=== PATIENT | female | born 1995 | race Caucasian/White ===

== ENCOUNTER 2016-10-25 22:51 | Inpatient (IN) | payer OTHER ==
--- NOTE | ~2016-10-25 | PN ---
Unit #: [id number] #: [id number] Patient: LAVERNE WHEELER [id number] [facility] [address] [place] [address] [id number] MR#: [id number] NAME: LAVERNE WHEELER ROOM: [facility] Age: 21 Sex: F Admission Date: 10/25/2016 : 1995 Attending Physician: Toni Haynes M.D. Admitting Physician: Toni Haynes M.D. Primary Care Physician: Primary Care Physician Lisa ROWLAND NOTES DATE OF SERVICE 10/30/2016 DISCUSSION Laverne Wheeler is a 41-year-old female seen on 10/30/2016. The patient interviewed, chart reviewed. Obtained information from nursing staff. The patient was compliant, cooperative. Mood was labile. The patient was somewhat attention-seeking. Needing redirection, but able to maintain safe behavior. The patient adjusting fairly well to unit rules of 2-Madhavi. The patient's vital signs stable, 98.0, 100, 123/77. Complete Review of Systems: Unremarkable. MENTAL STATUS EXAMINATION General Appearance: The patient dressed casually. Attention span, concentration: Fair. Oriented in place and person. Mood and affect labile. Speech: Rapid. Thought process: Circumstantial. Association: The patient denied any thoughts of harming self or others but somewhat guarded. Recent and remote memory: Poor. Insight and judgment: Poor. DIAGNOSIS Bipolar mood disorder not otherwise specified. ASSESSMENT/PLAN Advised to continue with current medication and therapeutic protocol. We will monitor response to medication and make further adjustment of medication with a plan to stabilize the patient and send the patient back to the residential facility. Dictated by... Jesus Goodman/edward TD: 11/01/2016 07:05 JOB #: [id number] Unit #: [id number] #: [id number] Patient: LAVERNE WHEELER PROGRESS NOTES X Toni Haynes MD PROGRESS NOTE
--- NOTE | ~2016-10-25 | PN ---
Unit #: [id number] #: [id number] Patient: LAVERNE WHEELER [id number] [facility] [address] [place] [address] [id number] MR#: [id number] NAME: LAVERNE WHEELER ROOM: [facility] Age: 21 Sex: F Admission Date: 10/25/2016 : 1995 Attending Physician: Toni Haynes M.D. Admitting Physician: Toni Haynes M.D. Primary Care Physician: Primary Care Physician Lisa ROWLAND NOTES DATE OF SERVICE: 10/28/2016 DISCUSSION Ms. Laverne Wheeler is a 21-year-old female, seen on 10/28/2016. The patient interviewed, chart reviewed, obtained information from nursing staff. The patient was compliant, cooperative. Mood is sad and dysphoric, flat affect, guarded. The patient was able to maintain safe behavior. No aggressive behavior. REVIEW OF SYSTEMS Complete review of systems unremarkable. MENTAL STATUS EXAMINATION General appearance, the patient dressed casually. Attention span and concentration, fair. Oriented in place and person. Mood and affect, sad and dysphoric. Speech, monotone. Thought process, concrete. The patient denied any thoughts of harming self or others or any psychotic symptom. Recent and remote memory, poor. Insight and judgment, poor. DIAGNOSIS Mood disorder, not otherwise specified. ASSESSMENT AND PLAN Advised to continue with current medication and therapeutic protocol. We will monitor response to medication and make further adjustment of medication. Dictated by... Jesus Goodman/arik TD: 10/29/2016 16:11 JOB #: [id number] Unit #: [id number] #: [id number] Patient: LAVERNE WHEELER PEALUIGI PROGRESS NOTES X Toni Haynes MD PROGRESS NOTE
--- NOTE | ~2016-10-25 | PN ---
Unit #: [id number] #: [id number] Patient: LAVERNE WHEELER [id number] [facility] [address] [place] [address] [id number] MR#: [id number] NAME: LAVERNE WHEELER ROOM: [facility] Age: 21 Sex: F Admission Date: 10/25/2016 : 1995 Attending Physician: Toni Haynes M.D. Admitting Physician: Toni Haynes M.D. Primary Care Physician: Primary Care Physician Lisa BROOKS PROGRESS NOTES DATE 10/27/2016 DISCUSSION Ms. Laverne Wheeler is a 21-year-old female seen on 10/27/2016. The patient interviewed, chart reviewed. Obtained information from nursing staff. The patient was pleasant and cooperative able to maintain safe behavior. No aggressive behavior. Mood was labile. Complete review of systems unremarkable. MENTAL STATUS EXAMINATION General appearance, the patient dressed casually. Attention span and concentration fair. Oriented to place and person. Mood and affect sad, dysphoric. Speech monotone. Thought process concrete. The patient denied any thoughts of harming self or others or any psychotic symptoms. Recent and remote memory poor. Insight and judgement poor. DIAGNOSES Bipolar mood disorder NOS. ASSESSMENT/PLAN Advise to continue with current medication and therapeutic protocol. We will monitor response to medication and make further adjustment of medication. Dictated by... Jesus Goodman/joselo TD: 10/30/2016 22:23 JOB #: [id number] Unit #: [id number] #: [id number] Patient: LAVERNE WHEELER PROGRESS NOTES X Toni Haynes MD PROGRESS NOTE
--- NOTE | ~2016-10-25 | PN ---
Unit #: [id number] #: [id number] Patient: LAVERNE WHEELER [id number] [facility] [address] [place] [address] [id number] MR#: [id number] NAME: LAVERNE WHEELER ROOM: [facility] [place] Age: 21 Sex: F Admission Date: 10/25/2016 : 1995 Attending Physician: Toni Haynes M.D. Admitting Physician: Toni Haynes M.D. Primary Care Physician: Primary Care Physician Lisa ROWLAND NOTES DATE OF SERVICE 10/29/2016 DISCUSSION Laverne Wheeler is a 21-year-old female seen on 10/29/2016. The patient interviewed, chart reviewed. Obtained information from nursing staff. The patient was compliant and cooperative. The patient still having problem with mood lability but no self-harming behavior or aggression. Compliant with medication. No side effects from medication. The patient needed multiple redirections. Complete Review of Systems: Unremarkable. MENTAL STATUS EXAMINATION General Appearance: The patient dressed casually. Moderately obese. Attention span, concentration: Fair. Oriented in place and person. Mood and affect labile. Speech: Loud. Thought process: Circumstantial. Association: The patient denied any thoughts of harming self or others but somewhat guarded. Recent and remote memory: Poor. Insight and judgment: Poor. DIAGNOSES 1. Bipolar mood disorder not otherwise specified. 2. Mild intellectual deficit. ASSESSMENT/PLAN Advised to continue with current medication and therapeutic protocol. We will monitor response to medication and make further adjustment of medication if needed. Dictated by... Jesus Goodman/edward TD: 10/31/2016 11:31 JOB #: [id number] Unit #: [id number] #: [id number] Patient: LAVERNE WHEELER PROGRESS NOTES X Toni Haynes MD PROGRESS NOTE
--- NOTE | ~2016-10-25 | DS ---
Unit #: [id number] #: [id number] Patient: JOSUE CALHOUN [id number] [place] [address] [id number] MR#: [id number] NAME: JOSUE CALHOUN ROOM: [facility] Age: 21 Sex: F Admission Date: 10/25/2016 : 1995 Discharge Date: 11/01/2016 Attending Physician: Toni Haynes M.D. Primary Care Physician: Primary Care Physician No DISCHARGE SUMMARY REASON FOR ADMISSION Self-harm and depression. DIAGNOSTIC STUDIES LABORATORY RESULTS: Unremarkable. HOSPITAL COURSE The patient was admitted to inpatient unit on 10/25/2016 and discharged on 11/01/2016. The patient was treated on the inpatient unit with group therapy, individual therapy, and medication management. No change of medication was done. The patient was continued on the same medication, but responded well with supportive psychotherapy and structured milieu. The patient was subsequently discharged with a plan to follow up in outpatient clinic. DISCHARGE MEDICATIONS Abilify 15 mg b.i.d. for mood stabilization and psychosis, Cogentin 1 mg in the morning for EPS symptom, Lamictal 200 mg at bedtime for mood stabilization, Celexa 30 mg daily for depression, Depakote ER 500 mg daily for mood stabilization, and trazodone 75 mg at bedtime for depression. The patient is also on lactase 3000 units t.i.d. for lactose intolerance, Synthroid 0.15 mg in the morning for hypothyroidism, Protonix 40 mg daily for GERD, Os-Eliezer D 500 mg daily for calcium supplement, Benadryl 50 mg at bedtime for sleep and allergies, Colace 100 mg b.i.d. for constipation, vitamin D2 1000 units daily for vitamin D replacement, and MiraLAX 17 g b.i.d. for constipation. DISCHARGE DIAGNOSES Psychiatric: 1. Bipolar mood disorder, current episode depressed without psychotic feature, F31.89. 2. Anxiety disorder, not otherwise specified. 3. Intermittent explosive disorder. Secondary diagnosis: Mild intellectual deficit. Medical diagnoses: Obesity, hypothyroidism. Stressors: Psychosocial stressors. DISCHARGE INSTRUCTIONS The patient is to follow up in outpatient clinic as per social media marketing manager. CONDITION ON DISCHARGE Unit #: [id number] #: [id number] Patient: JOSUE CALHOUN The patient was pleasant and cooperative. Denied any psychotic symptom or any suicidal ideation. PROGNOSIS Guarded. DIET AND ACTIVITY As tolerated. Dictated by... Jesus Goodman/arik TD: 11/01/2016 16:40 JOB #: [id number] DISCHARGE SUMMARY X Toni Haynes MD X DISCHARGE SUMMARY
--- NOTE | ~2016-10-25 | PN ---
Unit #: [id number] #: [id number] Patient: LAVERNE WHEELER [id number] [facility] [address] [place] [address] [id number] MR#: [id number] NAME: LAVERNE WHEELER ROOM: [facility] Age: 21 Sex: F Admission Date: 10/25/2016 : 1995 Attending Physician: Toni Haynes M.D. Admitting Physician: Toni Haynes M.D. Primary Care Physician: Primary Care Physician Lisa BROOKS PROGRESS NOTES DATE 10/31/2016 DISCUSSION Ms. Laverne Wheeler is a 21-year-old female. Patient interviewed. Chart reviewed. Obtained information from nursing staff. Patient's mood continues to be labile but no self-harming behavior. Patient was able to participate in activity therapy, maintain safe behavior, friendly, cooperative. No aggressive behavior. Complete review of system unremarkable. MENTAL STATUS EXAMINATION General appearance, patient dressed casually. Attention span, concentration fair. Oriented in place and person. Mood and affect was labile. Speech regular rate. Thought process, goal-directed. Association, patient denied any thoughts of harming self or others but guarded. Recent and remote memory poor. Insight and judgement poor. DIAGNOSES Bipolar mood disorder NOS. ASSESSMENT/PLAN Advised to continue with current medication and therapeutic protocol. Will monitor response to medication and make further adjustment of medication if needed. Dictated by... Jesus Goodman/jonathan TD: 11/01/2016 22:53 JOB #: [id number] Unit #: [id number] #: [id number] Patient: LAVERNE WHEELER PEALUIGI PROGRESS NOTES X Toni Haynes MD PROGRESS NOTE
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
--- NOTE | ~2016-10-25 | HP ---
Unit #: [id number] #: [id number] Patient: LAVERNE CALHOUN [id number] [place] [address] [id number] MR#: [id number] NAME: LAVERNE CALHOUN ROOM: [facility] Age: 21 Sex: F Admission Date: 10/25/2016 : 1995 Attending Physician: Toni Haynes M.D. Admitting Physician: Toni Haynes M.D. Primary Care Physician: Primary Care Physician No HISTORY AND PHYSICAL HISTORY OF PRESENT ILLNESS Laverne is a 21 year old admitted to [address] [place] [address] with depression and after verbalizing wanting to hurt herself. She has had other admissions to this facility for the same. PAST MEDICAL HISTORY 1. Morbid obesity. 2. Chronic constipation. 3. Hypothyroidism. PAST SURGICAL HISTORY Nothing reported. ALLERGIES No known drug allergies. SOCIAL HISTORY She denies cigarettes, alcohol and illicit drug use. FAMILY HISTORY Medically noncontributory. REVIEW OF SYSTEMS CONSTITUTIONAL: No fever or chills. HEENT: Denies any sore throat, ear pain or runny nose. CARDIOVASCULAR: Denies chest pain, irregular heart rhythm or palpitations. CHEST: Denies shortness of breath or cough. No hemoptysis. GASTROINTESTINAL: Denies nausea, vomiting, diarrhea or chronic constipation. ENDOCRINE: Denies history of increased thirst or urination. No recent significant weight loss or gain. GENITOURINARY: Denies dysuria, frequency, or hematuria. SKIN: Denies any rashes. HEMATOLOGIC: Denies history of increased bleeding or bruising. MUSCULOSKELETAL: Denies any hot, swollen joints. No generalized muscle pain. NEUROLOGIC: Denies problems with vision or speech. No frequent, severe headaches. No numbness, tingling or weakness in any extremities. Denies loss of bladder or bowel control. CURRENT MEDICATIONS 1. Depakote ER 500 mg daily. 2. Citalopram 10 mg daily. Unit #: [id number] #: [id number] Patient: LAVERNE CALHOUN 3. Celexa 20 mg daily. 4. Protonix 40 mg daily. 5. Synthroid 0.15 mg daily. 6. Benadryl 50 mg q.h.s. 7. Lamictal 200 mg q.h.s. 8. Colace 100 mg b.i.d. PHYSICAL EXAMINATION GENERAL: Alert, morbidly obese, in no apparent distress. VITAL SIGNS: Blood pressure 120/86, heart rate 80, respirations 16, temperature 98.6. WEIGHT: 183. HEIGHT: 5 feet 2 inches. SKIN: Warm and dry without rash or lesion. HEENT: Normocephalic. TMs not viewed. Oral and nasal passages clear. Conjunctivae clear. PERRLA. EOMs intact. NECK: Supple without lymphadenopathy or thyromegaly. HEART: Regular rate and rhythm without murmur. LUNGS: Clear. ABDOMEN: Soft, nontender. : Not done. EXTREMITIES: No evidence of cyanosis, clubbing or edema. Moves all without focal deficit. NEUROLOGICAL: Grossly within normal limits. Cranial Nerves: II: Visual robles are intact. III, IV AND : Extraocular movements are intact. Pupils are equal, round and reactive to light. V: Facial sensation is grossly normal. VII: Facial movements and expression are normal. VIII: Auditory acuity grossly intact. IX, X: Uvula is midline. Phonation is normal. XI: Patient shrugs shoulders and turns head normally. XII: Tongue protrudes in the midline. Sensory and Motor Function: Sensory and motor sensation is grossly normal. Motor: moves all extremities well. Coordination: Gait is normal. Deep Tendon Reflexes: Intact. IMPRESSION Psychiatric admission. RECOMMENDATIONS PSYCHIATRIC: Per psychiatrist. MEDICAL: See no contraindications to participate in facility's activities. MEDICAL PROGNOSIS Good. MEDICAL CONDITION Stable. Dictated by... Irma Hollingsworth P.A.-C. for Jesus Fisher/jonathan TD: 10/26/2016 22:48 Unit #: [id number] #: [id number] Patient: LAVERNE CALHOUN JOB #: [id number] HISTORY AND PHYSICAL X Irma Hollingsworth X HISTORY AND PHYSICAL
[2016-10-26 09:50] LABS: BASOPHIL% 0.5 % (0-2.5); EOSINOPHIL# 0.1 X10e3 (0-0.7); HEMATOCRIT 40.9 % (35.0-45.0); HEMOGLOBIN 13.7 gm/dL (12.0-16.0); LYMPHOCYTE# 2.3 X10e3 (1.0-3.5); LYMPHOCYTE% 38.1 % (17.0-45.0); MEAN CELL VOLUME 88.2 FL (83-96); MEAN CORPUSCULAR HEMOGLOBIN 29.5 PG (28-34); MEAN CORPUSCULAR HGB CONC 33.4 g/dL (30-36); MEAN PLATELET VOLUME 8.6 FL (6.5-11.5); MONOCYTE# 0.6 X10e3 (0-1.0); MONOCYTE% 9.6 % (3.0-12.0); NEUTROPHIL% 49.8 % (40-75); PLATELET COUNT 326 X10e3 (140-420); RED BLOOD COUNT 4.64 X10e (3.90-5.30); RED CELL DISTRIBUTION WIDTH 12.7 % (11.0-15.5)
[2016-10-26 10:09] LABS: DIFF IND NO
[2016-10-26 10:48] LABS: THYROID STIMULATING HORMONE 3.36 uIU/ml (0.34-5.60)
[2016-10-26 10:54] LABS: FREE THYROXIN (T4) 0.87 ng/dL (0.58-1.64)
[2016-10-26 11:10] LABS: ALBUMIN SERUM 3.9 g/dL (3.5-5.0); ALKALINE PHOSPHATASE 49 U/L (32-92); ALT (SGPT) 28 U/L (10-40); AST (SGOT) 24 U/L (10-42); BILIRUBIN,TOTAL 0.3 mg/dL (0.2-2.0); BLOOD UREA NITROGEN 6 mg/dL (9-23); BUN/CREATININE RATIO 8.57; CALCIUM SERUM 9.6 mg/dL (8.4-10.2); CARBON DIOXIDE 24 mmol/L (22-31); CHLORIDE 108 mmol/L (100-111); CREATININE SERUM 0.7 mg/dL (0.6-1.4); GLOM FILT RATE Estimated ABOVE60 mL/min (>60); GLUCOSE FASTING 93 mg/dL (70-110); POTASSIUM 4.3 mmol/L (3.5-5.1); PROTEIN TOTAL SERUM 7.4 g/dL (6.0-8.3); SODIUM 137 mmol/L (135-145)
[2016-10-31 10:39] LABS: URINE SOURCE CLEAN CATCH
[2016-10-31 12:30] LABS: URINE APPEARANCE CLOUDY; URINE BILIRUBIN NEG (NEG); URINE BLOOD NEG (NEG); URINE COLOR YELLOW; URINE GLUCOSE NEG (NEG); URINE KETONE NEG (NEG); URINE LEUKOCYTE ESTERASE 2+ (NEG); URINE NITRATE NEG (NEG); URINE PROTEIN NEG (NEG); URINE SPECIFIC GRAVITY 1.016 (1.003-1.035); URINE UROBILINOGEN 0.2 MG/DL (NEG)
[2016-10-31 12:35] LABS: URINE BACTERIA AUWI 1+ (NEGATIVE); URINE SQUAMOUS EPITHELIAL CELL OCC /[HPF]
[2016-10-31 12:54] LABS: URBCS1 AUWI 0-2 /[HPF] (0-2)
[2016-10-31 13:34] LABS: AMPHETAMINE NEG (NEG); BARBITURATES NEG (NEG); BENZODIAZEPINES NEG (NEG); COCAINE NEG (NEG); MARIJUANA NEG (NEG); OPIATES NEG (NEG); TRICYCLIC ANTIDEPRESSANTS NEG (NEG); U METHADONE NEG (NEG)
== END 2016-11-01 15:10 | disposition home or self-care (01) | DRG 885 ==
LOC: P1S 22:51 → P2L 10-29 15:41
PROVIDERS: Psychiatry & Neurology Psychiatry
PROC: 3E0234Z Introduction of Serum, Toxoid and Vaccine into Muscle, Percutaneous Approach (ICD-10-PCS; principal; 2016-11-01)
DX: F31.89 Other bipolar disorder (principal); F70 Mild intellectual disabilities; E03.9 Hypothyroidism, unspecified; F41.9 Anxiety disorder, unspecified; F63.81 Intermittent explosive disorder; E66.9 Obesity, unspecified; K59.09 Other constipation; Z23 Encounter for immunization
CPT/HCPCS: 80053; 80307; 81003; 84439; 84443; 84703; 85025; 90688